=== PATIENT | male | born 1995 | race Two or more races ===

== ENCOUNTER 2023-03-10 11:46 | Emergency (ER) | payer BC, OTHER ==
[~2023-03-10] VITALS: Ht 177.8 cm; Wt 77.1 kg
--- NOTE | 2023-03-10 11:49 | NUR ---
Patient examine by
[2023-03-10] MEDS ORDERED: QUET50TA PO ×2 (12:06→12:19)
[2023-03-10] MEDS ORDERED: LORA-114 PO (12:11)
--- NOTE | 2023-03-10 12:30 | NUR ---
DCD instructions given to pt. He left room with no distress noted or reported.
== END 2023-03-10 12:31 | disposition home or self-care (01) ==
LOC: ER 11:58
DX: F31.9 Bipolar disorder, unspecified (principal); Z76.0 Encounter for issue of repeat prescription; Z88.1 Allergy status to other antibiotic agents; Z79.899 Other long term (current) drug therapy
CPT/HCPCS: A4663